=== PATIENT | male | born 2000 | race Two or more races ===

== ENCOUNTER 2020-09-09 16:11 | Emergency (ER) | payer SELFPAY ==
[~2020-09-09] VITALS: Ht 167.6 cm; Wt 73.0 kg
[2020-09-09 16:18] VITALS: BP 127/74
== END 2020-09-09 18:22 | disposition home or self-care (01) ==
LOC: ER 16:11
DX: S93.602A Unspecified sprain of left foot, initial encounter (principal); X58.XXXA Exposure to other specified factors, initial encounter; Y93.9 Activity, unspecified; Y92.9 Unspecified place or not applicable
CPT/HCPCS: 73630; 99283; Z7610

== ENCOUNTER 2020-10-21 15:49 | Emergency (ER) | payer MEDICAID ==
[~2020-10-21] VITALS: Ht 177.8 cm; Wt 91.0 kg
[2020-10-21] MEDS ORDERED: IBUPROFEN 600MG TABLET PO ONE (17:00)
[2020-10-21 19:51] VITALS: BP 116/69
== END 2020-10-21 20:02 | disposition home or self-care (01) ==
LOC: ER 15:49
DX: S93.402A Sprain of unspecified ligament of left ankle, initial encounter (principal); S93.602A Unspecified sprain of left foot, initial encounter; X50.1XXA Overexertion from prolonged static or awkward postures, initial encounter; Y93.89 Activity, other specified; Y92.018 Other place in single-family (private) house as the place of occurrence of the external cause
CPT/HCPCS: 73610; 73630; 93005; 99284